=== PATIENT | female | born 1980 | race Caucasian/White ===

== ENCOUNTER 2017-06-20 07:36 | Outpatient (CLI) | payer BC ==
--- NOTE | 2017-06-20 09:32 | Cat Scan Report ---
FINAL REPORT EXAM: CT ABDOMEN WO CON HISTORY: RIGHT UPPER QUADRANT PAIN TECHNIQUE: Noncontrast CT of the abdomenperformed. No IV contrast was administered. Oral contrast was administered. Coronal and sagittal reformatted images were obtained. PRIORS: None FINDINGS: The visualized aspects of the lung bases are clear. Within the limitations of a non-enhanced study, the visualized liver, spleen, pancreas, adrenal glands and kidneys demonstrate no significant abnormalities. There is no abdominal aortic aneurysm. There is no evidence of intestinal obstruction. The appendix is normal. The patient is status post cholecystectomy. There is some mild diffuse gastric wall thickening and duodenal wall thickening. This is concerning for gastroduodenitis. There are no abnormal fluid collections seen. There is no free intraperitoneal air. IMPRESSION: There is mild gastric and duodenal wall thickening which may reflect gastroduodenitis. There is no other significant finding seen.
== END 2017-06-20 07:37 | disposition home or self-care (01) ==
LOC: CT 07:36
PROVIDERS: ATTEND Internal Medicine
DX: R10.11 Right upper quadrant pain (principal); Z90.49 Acquired absence of other specified parts of digestive tract
CPT/HCPCS: 74150

== ENCOUNTER 2018-07-22 12:43 | Outpatient (CLI) | payer BC ==
[2018-07-22 13:42] LABS: Bacteria,Urine 3+ /HPF (Negative); Bilirubin,Urine NEG (Negative); Blood,Urine NEG (Negative); Color,Urine Amber (Yellow); Mucus,Urine 3+ /HPF; Protein,Urine <15 mg/dL mg/dL (Negative); Urobilinogen,Urine < 2.0 mg/dL (<2.0)
== END 2018-07-22 12:44 | disposition home or self-care (01) ==
LOC: LAB 12:43
PROVIDERS: ATTEND Internal Medicine
DX: N39.0 Urinary tract infection, site not specified (principal)
CPT/HCPCS: 81001; 87086